=== PATIENT | male | born 1980 | race American Indian/Alaskan Native ===

== ENCOUNTER 2016-07-07 19:08 | Emergency (ER) | payer OTHER, MEDICAID ==
[2016-07-08] MEDS ORDERED: MOTRIN PO ONE (01:47)
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
[2016-07-08 02:20] VITALS: BP 132/92
== END 2016-07-08 02:28 | disposition home or self-care (01) ==
LOC: ED 19:08
DX: S39.012A Strain of muscle, fascia and tendon of lower back, initial encounter (principal); M79.1 Myalgia; F17.200 Nicotine dependence, unspecified, uncomplicated; V49.88XA Car occupant (driver) (passenger) injured in other specified transport accidents, initial encounter; Y92.413 State road as the place of occurrence of the external cause; Y93.89 Activity, other specified; Y99.9 Unspecified external cause status
CPT/HCPCS: 99282